=== PATIENT | female | born 1985 | race Caucasian/White ===

== ENCOUNTER 2018-10-19 00:15 | Inpatient (IN) | payer OTHER ==
[~2018-10-19] VITALS: Ht 160 cm; Wt 86.0 kg
[2018-10-19 00:25] VITALS: BP 140/97; PULSE 72; RESP 18
--- NOTE | 2018-10-19 00:35 | TRIAGE ---
OB Triage Datetime Report Generated by CPN: 10/19/2018 00:35 Datetime: 10/19/2018 00:32 Time of Arrival: 10/19/2018 00:10 EGA: 38.5 Arrived By: Wheelchair Arrived From: Home Chief Complaint: UC's Movement: Present Contractions: Regular Time Contractions Began: 10/18/2018 23:00 Contractions: Every 3min Rupture of Membranes: Ruptured Vaginal Bleeding: None Vaginal Discharge: Denies Recent Sexual Intercouse: Denies Patient Complaints: Contractions Additional Patient Complaints: Leaking Time Provider Notified: 10/19/2018 00:30 Provider Notified: Dr. Caal Initial Plan: CEFM, VE Datetime: 10/19/2018 00:26 Vaginal Exam Dilatation (cms): 5.0 Effacement (%): 90 Station: -2 Exam By: José Miguel Martin RN Membrane Status: Ruptured Membranes Ruptured Date/Time: 10/18/2018 23:45 Membranes Rupture Method: Spontaneous Amniotic Fluid Color: Bloody Amniotic Fluid Amount: Moderate Amniotic Fluid Odor: Normal Vaginal Bleeding: Normal Show Cervix, Consistency: Soft Cervix, Position: Midposition Presentation 'A': Cephalic Datetime: 10/19/2018 00:25 Stage of : OB Triage Assessment Type: Triage Maternal Assessment Level of Consciousness: Fully Conscious DTR's/Clonus: DTRs 2+; No Clonus Headache: Denies Blurred Vision: No Respiratory Effort: Unlabored; Regular Rhythm; Equal Expansion Breath Sounds, Left: Clear and Equal Breath Sounds, Right: Clear and Equal Nausea/Vomiting: Denies RUQ Epigastric Pain: Denies Facial Edema: None Temperature Route: Oral Fall Risk Assessment History of Falling: (0) No Secondary Diagnosis: (0) No Ambulatory Aid: (0) Bedrest/Nurse Assist IV Therapy: (0) No Gait: (0) Normal/Bedrest/Immobile Mental Status: (0) Oriented to Own Ability Fall Score: 0 Fall Risk Score Definition: No Risk: No action required Pain Assessment Pain Scale: 10 Pain Presence: Intermittent Pain Type: Cramping Pain Location: Abdomen
[2018-10-19] MEDS ORDERED: PNV11TAB PO (00:36)
[2018-10-19 00:37] VITALS: Ht 160 cm; Wt 86.0 kg
[2018-10-19] MEDS ORDERED: LACTATED RINGER'S 1,000 ML IV SCH (00:40)
[2018-10-19] MEDS ORDERED: METHYLERGONOVINE 0.2 MG INJ IM PRN ×2 (01:00→02:30)
[2018-10-19] MEDS ORDERED: MISOPROSTOL 200 MCG TAB PR PRN ×2 (01:00→02:30)
[2018-10-19] MEDS ORDERED: LIDOCAINE 1% (MPF) 30 ML INJ INJ PRN (01:00)
[2018-10-19] MEDS ORDERED: AMPICILLIN 2 GM/NS (PMX) 100 ML IV ONE (01:00)
[2018-10-19] MEDS ORDERED: BUTORPHANOL 2 MG INJ IV PRN (01:00)
[2018-10-19] MEDS ORDERED: OXYTOCIN 30 UNITS/LR 500 ML IV SCH ×3 (01:00→02:16)
[2018-10-19] MEDS ORDERED: OXYTOCIN 30 UNITS/LR 500 ML IV PRN ×2 (01:00→02:30)
[2018-10-19] MEDS ORDERED: CARBOPROST 250 MCG INJ IM PRN ×2 (01:00→02:30)
--- NOTE | 2018-10-19 01:36 | PREAC ---
Date/Time of Note Date/Time of Note DATE: 10/19/18 TIME: 01:36 Anesthesia Eval and Record Evaluation Time Pre-Procedure Interview DATE: 10/19/18 TIME: 01:36 Age 33 Sex female NPO: 8 hrs Preoperative diagnosis labor pain Planned procedure labor epidural Past Medical History Past Medical History: None Surgery & Anesthesia Issues No known issue Meds Anticoagulation: No Beta Saturnino within 24 hr: No Reason Beta Saturnino not given: Pt. not on B-Saturnino Reported Medications [id number] ( 19) 1 Each Tablet, 1 TAB PO DAILY, TAB 10/19/18 Current Medications Lactated Ringer's 1,000 ml @ 125 mls/hr Q8H IV ; Start 10/19/18 at 00:40 Ampicillin 100 ml @ 100 mls/hr ONCE ONCE IV ; Start 10/19/18 at 01:00; Stop 10/19/18 at 01:59 Ampicillin 50 ml @ 100 mls/hr Q4H IV ; Start 10/19/18 at 05:00 Butorphanol Tartrate (Stadol) 2 mg Q2H PRN IV .PAIN; Start 10/19/18 at 01:00 Lidocaine (Xylocaine 1% (Mpf)) 30 ml ONCE PRN INJ .EPISIOTOMY; Start 10/19/18 at 01:00 Oxytocin/Lactated Ringer's 500 ml @ 500 mls/hr ONCE POST IV ; Start 10/19/18 at 01:00 Oxytocin/Lactated Ringer's 500 ml @ 125 mls/hr POST IV ; Start 10/19/18 at 01:00 Oxytocin/Lactated Ringer's 500 ml @ 0 mls/hr ONCE PRN IV .VAGINAL BLEEDING; Start 10/19/18 at 01:00 Methylergonovine Maleate (Methergine) 0.2 mg ONCE PRN IM .VAGINAL BLEEDING; Start 10/19/18 at 01:00 Carboprost Tromethamine (Hemabate) 250 mcg ONCE PRN IM .VAGINAL BLEEDING; Start 10/19/18 at 01:00 Misoprostol (Cytotec) 1,000 mcg ONCE PRN OK .VAGINAL BLEEDING; Start 10/19/18 at 01:00 Meds reviewed: Yes Allergies Coded Allergies: No Known Allergy (Unverified , 10/19/18) Allergies Reviewed: Yes Labs/Studies Labs Reviewed: Reviewed by anesthesiologist Result Diagram: 10/19/18 0100 Laboratory Tests 10/19/18 01:00 test: Positive Pre-procedure Exam Last vitals Vital Signs Date Temp Pulse Resp B/P (MAP) Pulse Ox O2 O2 Flow FiO2 Time Delivery Rate 10/19/18 98.1 72 18 140/97 Room Air 00:25 (111) Airway: Adequate mouth opening, Adequate thyromental dist Mallampati: Mallampati III Teeth: Normal Lung: Normal Heart: Normal ASA Physical Status ASA physical status: 2 Emergency: None Planned Anesthetic Neuraxial: Epidural Planned Pain Management Epidural, Parenteral pain med, Other neuraxial med Pre-operative Attestations Prior to commencing anesthesia and surgery, the patient was re-evaluated, there was verification of: *The patient's identity *The results of appropriate recent lab work and preoperative vital signs *The above evaluation not changing prior to induction *Anesthetic plan, risk benefits, alternative and complications discussed with patient/family; questions answered; patient/family understands, accepts and wishes to proceed. BRISSA HAQUE MD Oct 19, 2018 01:36
[2018-10-19] MEDS ORDERED: NALOXONE (0.4 MG/ML) INJ IV PRN (02:00)
[2018-10-19] MEDS ORDERED: DIPHENHYDRAMINE 50 MG INJ IV PRN (02:00)
[2018-10-19] MEDS ORDERED: KETOROLAC 30 MG INJ IV PRN (02:00)
[2018-10-19] MEDS ORDERED: ZOLPIDEM 5 MG TAB PO PRN (02:00)
[2018-10-19] MEDS ORDERED: ONDANSETRON 4 MG INJ IV PRN ×2 (02:00→02:30)
[2018-10-19] MEDS ORDERED: HYDROmorphONE 0.5 MG/0.5 ML SYG IV PRN ×2 (02:00)
[2018-10-19] MEDS ORDERED: FENTAnyl 2MCG/ML-ROPIV 0.2% 100 ML BAG EPI SCH (02:00)
--- NOTE | 2018-10-19 02:15 | LDN ---
Date/Time of Note Date/Time of Note DATE: 10/19/18 TIME: 02:14 Delivery Summary Weeks of Gestation 39 Placenta Delivered: Spontaneously Meconium: none Episiotomy: No Laceration repair: 1st degree vaginal laceration repair with 2-0 chromic Anesthesia type: Epidural Estimated blood loss: 150 Sponge & Needle done & correct: Yes All needle counts correct: Yes Any foreign bodies felt in the: No Infant Delivery Information Sex Infant Sex: male Apgars 1 Minute: 9 5 Minute: 9 Suctioning Nose & mouth suctioned at sanna: No Delee suction performed: No Umbilical Cord Umbilical cord with: 3 Vessels Cord presentations: no nuchal cord Cord Blood was obtained: Yes JAVAD TAYLOR MD Oct 19, 2018 02:15
[2018-10-19] MEDS ORDERED: NACL 0.9% 3 ML SYG IV SCH (02:30)
[2018-10-19] MEDS ORDERED: WITCH HAZEL/GLYCERIN PAD PR PRN (02:30)
[2018-10-19] MEDS ORDERED: BENZOCAINE 20% 56 ML SPRAY TOP PRN (02:30)
[2018-10-19] MEDS ORDERED: OXYCODONE/ASPIRIN (4.88/325) TAB PO PRN (02:30)
--- NOTE | 2018-10-19 03:00 | PREOPHP ---
DATE OF ADMISSION: 10/19/2018 HISTORY OF PRESENT ILLNESS: Ms. Siri Woods is a 33-year-old 3, para 2, intrauterine pregn nicolás at term, presented to triage in active labor. She reports of having contractions since 10:00 p. m. last night. She denies any vaginal bleeding or discharge. Her care took place with Dr. Kelsey. PAST MEDICAL HISTORY: GDM A1. MEDICATIONS: vitamins. PAST SURGICAL HISTORY: None. OBSTETRICAL HISTORY: x2 vaginal delivery. GYNECOLOGIC HISTORY: 13, regular 3 to 4 days. Denies any sexually transmitted disease. Sexually ac tive with 1 partner. SOCIAL HISTORY: Denies any smoking, drugs or alcohol. FAMILY HISTORY: None. REVIEW OF SYSTEMS: All within normal except history of present illness. PHYSICAL EXAMINATION: HEENT: Within normal. LUNGS: CTA bilateral. CARDIOVASCULAR: S1, S2. Regular rate, rhythm. ABDOMEN: Gravid, nontender. Negative CVA bilateral. EXTREMITIES: Negative. No calf tenderness. PELVIC: Vaginal exam: Fully dilated, 100% effaced, +1 station. heart tracing category 1. To cometer: Regular contractions. ASSESSMENT: Intrauterine at term in labor. PLAN: Anticipated vaginal delivery. Dictated By: JAVAD MCNEIL/JACKIE Conf#: [id number] DID#: [id number]
[2018-10-19] MEDS ORDERED: AMPICILLIN 1 GM/NS (PMX) 50 ML IV SCH (05:00)
[2018-10-19] MEDS: ACCU-CHEK XX SCH ×5 (06:00→20:12)
[2018-10-19 06:20] VITALS: BP 138/87; PULSE 83; RESP 20
[2018-10-19] MEDS: OXYCODONE/ASPIRIN (4.88/325) TAB PO PRN ×2 (07:49→20:09)
[2018-10-19] MEDS: LANOLIN HPA 1 PKT TOP PRN (07:50)
[2018-10-19 08:00] VITALS: BP 114/65; PULSE 70; RESP 18
[2018-10-19] MEDS: SENNA/DOCUSATE NA (8.6MG/50MG) TAB PO SCH ×2 (08:58→20:09)
[2018-10-19 16:38] VITALS: BP 118/78; PULSE 68; RESP 18
[2018-10-19 20:00] VITALS: BP 130/84; PULSE 90; RESP 20
[2018-10-20 04:00] VITALS: BP 110/60; PULSE 70
--- NOTE | 2018-10-20 04:00 | DS ---
Date/Time of Note Date/Time of Note DATE: 10/20/18 TIME: 04:00 Obstetrical Discharge Record Final Diagnosis Final Diagnosis: Term delivered Vaginal Delivery Obstetrical Delivery: Spontaneous, Laceration, Repaired Condition on Discharge Physical Assessment Last Vitals: stable afebrile Voiding: Yes Bowel Movement: Yes Breast: Soft, non-tender, Filling Fundus: Firm Abdomen and Incision: soft nt Calf Tenderness: No Patient Condition: Fair JAVAD TAYLOR MD Oct 20, 2018 04:00
--- NOTE | 2018-10-20 04:01 | PD.PPDC ---
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
[2018-10-20] MEDS ORDERED: CEPASTAT LOZENGE MT PRN (06:30)
[2018-10-20 07:30] VITALS: BP 126/95; PULSE 70; RESP 20
[2018-10-20] MEDS: ACCU-CHEK XX SCH ×4 (07:30→20:05)
[2018-10-20] MEDS: SENNA/DOCUSATE NA (8.6MG/50MG) TAB PO SCH ×2 (08:23→21:17)
[2018-10-20] MEDS: LANOLIN HPA 1 PKT TOP PRN ×2 (10:49→23:36)
[2018-10-20] MEDS: OXYCODONE/ASPIRIN (4.88/325) TAB PO PRN ×2 (14:24→17:49)
[2018-10-20 16:00] VITALS: BP 133/90; PULSE 91; RESP 20
[2018-10-20 19:50] VITALS: BP 121/78; PULSE 80; RESP 18
[2018-10-20] MEDS: IBUPROFEN 600 MG TAB PO SCH (23:47)
[2018-10-21 03:50] VITALS: BP 117/81; PULSE 72; RESP 18
[2018-10-21] MEDS: IBUPROFEN 600 MG TAB PO SCH ×2 (05:35→11:35)
[2018-10-21 07:30] VITALS: BP 127/80; PULSE 72; RESP 18
[2018-10-21] MEDS ORDERED: DIPHTH/TET/ACEL PERTUSS (ADULT) 0.5 ML VIAL IM* ONE (08:00)
[2018-10-21] MEDS: ACCU-CHEK XX SCH ×2 (08:00→10:05)
[2018-10-21] MEDS: SENNA/DOCUSATE NA (8.6MG/50MG) TAB PO SCH (10:07)
[2018-10-22] MEDS ORDERED: IBUPROFEN 600 MG TAB PO SCH (02:00)
== END 2018-10-21 13:15 | disposition home or self-care (01) | DRG 807 ==
LOC: OBT 00:15 → L-D 00:15 → OBT 00:25 → L-D 01:54 → PP1 06:07
PROVIDERS: ADMIT Obstetrics & Gynecology; ATTEND Obstetrics & Gynecology
PROC: 10E0XZZ Delivery of Products of Conception, External Approach (ICD-10-PCS; principal; 2018-10-19)
PROC: 0HQ9XZZ Repair Perineum Skin, External Approach (ICD-10-PCS; 2018-10-19)
DX: O71.4 Obstetric high vaginal laceration alone (principal); Z37.0 Single live birth; Z3A.39 39 weeks gestation of pregnancy
CPT/HCPCS: 62319; 76815; 80053; 81001; 82962; 84560; 85014; 85018; 85025; 85384; 85610; 85730; 86592; 86850; 86900; 86901; 90715; G0463; J0290; J2590; J7120